=== PATIENT | male | born 1960 | race Caucasian/White ===

== ENCOUNTER 2020-12-31 06:13 | Inpatient (IN) ==
[2020-12-31] MEDS ORDERED: Clindamycin 900 MG/50 ML 900 MG/50 ML IV.SOLN IVPB ONE ×2 (06:33→15:00)
[2020-12-31] MEDS ORDERED: Ringers Solution, Lactated 1,000 ML IVC SCH (06:45)
[2020-12-31] MEDS ORDERED: Heparin 1,000 UNITS/500 mL 500 ML ONE ×2 (07:03→07:27)
[2020-12-31] MEDS ORDERED: *HR* Midazolam HCl 2 MG/2 ML VIAL ONE (07:07)
[2020-12-31] MEDS ORDERED: *HR* Propofol 200 MG/20 ML VIAL IVP ONE (07:07)
[2020-12-31] MEDS ORDERED: *HR* FentaNYL (PF) 100 MCG/2 ML VIAL ONE (07:07)
[2020-12-31] MEDS ORDERED: Ondansetron 4 MG/2 ML VIAL ONE (07:08)
[2020-12-31] MEDS ORDERED: Lidocaine HCL 4 ML Topical Solution (Laryng-O-Jet Kit Sterile Pak) TP ONE (07:08)
[2020-12-31] MEDS ORDERED: *HR* Rocuronium Bromide 50 MG/5 ML VIAL ONE (07:08)
[2020-12-31] MEDS ORDERED: Lidocaine -MPF 2% 2 ML VIAL ONE ×3 (07:08→09:55)
[2020-12-31] MEDS ORDERED: *HR* HYDROmorphone (PF) 1 MG/ML SYRINGE IVP PRN (07:45)
[2020-12-31] MEDS ORDERED: *HR* HYDROmorphone 2 MG TABLET PO PRN (07:45)
[2020-12-31] MEDS ORDERED: Famotidine 20 MG/2 ML VIAL IVP ONE (07:45)
[2020-12-31] MEDS ORDERED: Acetaminophen IV 1,000 MG/100 ML BAG IVPB ONE (07:45)
[2020-12-31] MEDS ORDERED: *HR* OxyCODONE Immed Rel 5 MG TABLET PO PRN (07:45)
[2020-12-31] MEDS ORDERED: *HR* Labetalol 20 MG/4 ML SYRINGE IVP PRN ×2 (07:45→11:32)
[2020-12-31] MEDS ORDERED: Vancomycin 1,000 MG, Sodium Chloride IRRigation 1,000 ML IR ONE (07:45)
[2020-12-31] MEDS ORDERED: EPHEDrine 50 MG/ML VIAL ONE (08:35)
[2020-12-31] MEDS ORDERED: *HR* Vasopressin 20 UNIT/ML VIAL ONE (08:36)
[2020-12-31] MEDS ORDERED: Ketorolac 30 MG/ML VIAL ONE (09:37)
[2020-12-31] MEDS ORDERED: Sugammadex Sodium 200 MG/2 ML VIAL IV ONE (09:37)
[2020-12-31] MEDS ORDERED: Vancomycin 1,000 MG VIAL ONE (09:45)
[2020-12-31] MEDS ORDERED: *HR* HYDROMORPHONE 2 MG/ML VIAL ONE (09:59)
[2020-12-31] MEDS ORDERED: Ondansetron 4 MG/2 ML VIAL IVP PRN (11:32)
[2020-12-31] MEDS ORDERED: Acetaminophen 325 MG TABLET PO PRN (11:32)
[2020-12-31] MEDS ORDERED: Naloxone 0.4 MG/ML INJ IVP PRN (11:32)
[2020-12-31] MEDS ORDERED: Fluticasone Propionate Nasal 50 MCG/SPRAY BOTTLE NS PRN (11:32)
[2020-12-31] MEDS ORDERED: 0.9 % Sodium Chloride 1,000 ML IVC SCH (11:32)
[2020-12-31] MEDS: *HR* Metoprolol 5 MG/5 ML VIAL IVP SCH ×3 (11:47→23:56)
[2020-12-31] MEDS: *HR* HYDROcodone/Acet 5/325 mg TABLET PO PRN ×2 (14:26→21:22)
[2020-12-31] MEDS: *HR* OxyCODONE Immed Rel 5 MG TABLET PO PRN ×2 (15:39→22:44)
[2020-12-31] MEDS: Diclofenac Sodium (DR) 50 MG TABLET.DR PO SCH (17:45)
[2021-01-01 04:55] LABS: Basophils % 0.4 %; Eosinophils # 0.2 K/mcL (0.0-0.6); Eosinophils % 2.4 %; Hematocrit 37.2 % (37.5-50.1); Hemoglobin 12.7 g/dL (12.9-16.9); Immature Granulocytes % 0.4 % (0-4); Lymphocytes # 2.3 K/mcL (0.6-4.6); Lymphocytes % 30.6 %; Mean Corpuscular HGB Conc 34.1 g/dL (31.6-35.5); Mean Corpuscular Hemoglobin 33.2 pg (28.0-33.3); Mean Corpuscular Volume 97.1 fL (83.0-100.0); Monocytes # 0.8 K/mcL (0.0-1.3); Monocytes % 9.9 %; Neutrophils # 4.3 K/mcL (1.6-8.9); Platelet Count 222 K/mcL (140-400); Red Blood Count 3.83 M/mcL (4.19-5.50); Segmented Neutrophils % 56.3 %; White Blood Count 7.6 K/mcL (4.3-11.1)
[2021-01-01 05:04] LABS: BUN/Creatinine Ratio 12 (6-26); Blood Urea Nitrogen 9 mg/dL (8-23); Calcium 8.7 mg/dL (8.6-10.3); Carbon Dioxide 26 mEq/L (23-29); Chloride 109 mEq/L (98-107); Glucose 87 mg/dL (70-105); Osmolality,Calculated 288 (280-300); Sodium 140 mEq/L (136-145); eGFR For African Americans > 60 (> 60); eGFR For Non-African Americans > 60 (> 60)
[2021-01-01] MEDS: *HR* HYDROcodone/Acet 5/325 mg TABLET PO PRN ×2 (05:38→12:11)
[2021-01-01] MEDS: *HR* Metoprolol 5 MG/5 ML VIAL IVP SCH (05:41)
[2021-01-01] MEDS ORDERED: *HR* Heparin 5,000 UNIT/ML VIAL SQ SCH ×2 (06:00)
[2021-01-01] MEDS: *HR* OxyCODONE Immed Rel 5 MG TABLET PO PRN ×2 (08:19→14:20)
[2021-01-01] MEDS: Diclofenac Sodium (DR) 50 MG TABLET.DR PO SCH (08:20)
[2021-01-01] MEDS ORDERED: Aspirin Enteric Coated 81 MG Tablet PO SCH (09:00)
[2021-01-01] MEDS ORDERED: amLODIPine 5 MG TABLET PO SCH (09:00)
[2021-01-01] MEDS ORDERED: Loratadine 10 MG TABLET PO SCH (09:00)
[2021-01-01 11:15] VITALS: BP 167/96
== END 2021-01-01 14:27 | disposition home or self-care (01) | DRG 254 ==
LOC: SAMDAY 06:13 → 2NNU 11:31
PROVIDERS: ADMIT Surgery; ATTEND Surgery
PROC: VASFFBG (ICD-10-PCS; 2020-12-31 07:45)